=== PATIENT | male | born 1960 | race Caucasian/White ===

== ENCOUNTER → 2017-08-27 | Outpatient (CLI) | payer OTHER ==
[~2017-08-27] MED LIST: ASPI81CH PO; CETI5 PO; CYCL10 PO; IBUP600 PO; Percocet 5-3251 EACH PO
== END ==
LOC: LAB EV 15:28
DX: Z20.9 Contact with and (suspected) exposure to unspecified communicable disease (principal)
CPT/HCPCS: 87389

== ENCOUNTER 2021-01-03 08:00 | Day surgery (SDC) | payer OTHER ==
[~2021-01-03] VITALS: Ht 162.6 cm; Wt 84.7 kg
[~2021-01-03 08:00] MED LIST changes: +ATOR80 PO; +CLOP75 PO; +LISI5 PO; +METO25ER PO; +NITR.4SL SL
--- NOTE | 2021-01-03 09:16 | NUR ---
01/03/21 0916 Kiersten Fleming WHILE ASSESSING PT., PT. WAS ASKED IF HE GETS CHEST PAIN & PT. MENTIONED THAT HE WAS HAVING CHEST PRESSURE NOW (906). PT. VITALS STABLE. PT. VERBALIZES HE GETS CP OFF & ON & HASN'T TAKEN NITRO FOR A COUPLE OF MONTHS. PT. VERBALIZES HIS CHEST PAIN/PRESSURE USUALLY COMES ON WHEN HE FEELS ANXIOUS. PT. DENIES SOB AT THIS TIME. DR. EVANS WAS NOTIFIED, NO ORDERS GIVEN. PER DR. EVANS PT. RECENTLY HAD A STENT PLACED & HAD A CARDIAC WORKUP.
== END 2021-01-03 11:20 | disposition home or self-care (01) ==
LOC: ORSCSDS 08:00
PROVIDERS: Surgery
PROC: 0DBM8ZX Excision of Descending Colon, Via Natural or Artificial Opening Endoscopic, Diagnostic (ICD-10-PCS; principal; 2021-01-03 09:15)
DX: R19.5 Other fecal abnormalities (principal); D12.4 Benign neoplasm of descending colon; I25.10 Atherosclerotic heart disease of native coronary artery without angina pectoris; I10 Essential (primary) hypertension; E78.5 Hyperlipidemia, unspecified; I25.2 Old myocardial infarction; Z79.01 Long term (current) use of anticoagulants; Z79.899 Other long term (current) drug therapy; Z87.891 Personal history of nicotine dependence
CPT/HCPCS: 88305; J2704; J7120

== ENCOUNTER 2023-09-16 06:56 | Day surgery (SDC) | payer SELFPAY ==
[~2023-09-16] VITALS: Ht 162.6 cm; Wt 82.0 kg
[2023-09-16] VITALS (10 sets, daily range): BP systolic 120–173; BP diastolic 64–96
[~2023-09-16 06:56] MED LIST changes: +Heparin Sodium 1000 Units/ML 10ML MDV ONE; +METFORMIN ER G500 MG PO; +NS 1,000 ML IV ONE; +NS 250 ML IV ONE; +TAMS.4ER PO; +Verapamil HCL 2.5 MG/ML 2ML Injection ONE
[2023-09-16] MEDS ORDERED: METF500 PO (07:24)
[2023-09-16] MEDS ORDERED: FentaNYL Citrate 50 MCG/ML 2 ML Injection ONE (07:32)
[2023-09-16] MEDS ORDERED: Midazolam HCl 1MG / ML 2ML Vial ONE (07:32)
[2023-09-16] MEDS ORDERED: NS 1,000 ML IV ONE (07:32)
--- NOTE | 2023-09-16 10:20 | NUR ---
PT AIR DEPLOYED FROM R RADIAL TR BAND. NO BLEEDING OR HEMATOMA NOTED. VSS. NADN. CALL LIGHT WITHIN REACH. [id number] COMPLETED BY TANK CLEANING SUPERVISORROMIE.
--- NOTE | 2023-09-16 11:00 | NUR ---
PT AMBULATES TO RESTROOM AND BACK WITHOUT DIFF. PT VERBALIZES UNDERSTANDING WRITTEN AND VERBAL INSTRUCTIONS. PT DENIES QUESTIONS. VSS. PT TR BAND REMOVED. CLOTH DOT IN PLACE WITH SPLINT. NO BLEEDING OR HEMATOMA NOTED. PT IV DC'D. CATH INTACT. PRESSURE DSG APPLIED. NO BLEEDING NOTED. PT DC TO HOME VIA FAMILY BY YESSICA.
== END 2023-09-16 11:00 | disposition home or self-care (01) ==
LOC: MHTC 06:56
DX: I25.119 Atherosclerotic heart disease of native coronary artery with unspecified angina pectoris (principal); I10 Essential (primary) hypertension; R94.39 Abnormal result of other cardiovascular function study; E78.5 Hyperlipidemia, unspecified; I25.2 Old myocardial infarction; E66.9 Obesity, unspecified; Z68.31 Body mass index [BMI] 31.0-31.9, adult; E11.9 Type 2 diabetes mellitus without complications
CPT/HCPCS: 93306; J1644; J2250; J3010; J7030; J7050